=== PATIENT | female | born 1955 | race Caucasian/White ===

== ENCOUNTER 2022-05-29 23:48 | Inpatient (IN) | payer MEDICARE, OTHER ==
[~2022-05-29] VITALS: Ht 152.4 cm; Wt 66.2 kg
--- NOTE | 2022-05-29 23:57 | NUR ---
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 A/O X 4, RESPIRATORY EVEN AND UNLABORED, NO SOB NOTED. CONNENCTED TO MONITOR. AWAITING TO BE SEEN BY .
--- NOTE | 2022-05-30 00:25 | NUR ---
LINE STARTED AT LAC #20, BLOOD COLLECTED AND SENT TO LAB
[2022-05-30 00:41] LABS: BASOPHILS % (AUTO) 0.7 % (0.0-2.0); EOSINOPHILS % (AUTO) 1.2 % (0.0-6.0); HEMATOCRIT 37 % (33-45); HEMOGLOBIN 11.9 g/dL (11.5-14.8); LYMPHOCYTES # (AUTO) 1.6 K/uL (0.8-4.8); LYMPHOCYTES % (AUTO) 24.4 % (20.0-44.0); MEAN CORPUSCULAR HGB CONC 33 g/dl (31.0-36.0); MEAN CORPUSCULAR VOLUME 78 fL (82-100); MONOCYTES # (AUTO) 0.6 K/uL (0.1-1.30); MONOCYTES % (AUTO) 9.3 % (2.0-12.0); NEUTROPHILS # (AUTO) 4.3 K/uL (1.8-8.9); NEUTROPHILS % (AUTO) 64.4 % (43.0-81.0); PLATELET COUNT (AUTO) 201 K/uL (150-450); RED BLOOD CELL COUNT(AUTO) 4.71 MIL/uL (4.0-5.2); WHITE BLOOD COUNT (AUTO) 6.6 K/uL (4.3-11.0)
[2022-05-30 00:48] LABS: CALCIUM, SERUM 9.1 mg/dL (8.5-10.1); CARBON DIOXIDE 30 mmol/L (21-32); CHLORIDE 99 mmol/L (98-107); CREATININE 1.1 mg/dL (0.6-1.3); GLUCOSE 161 mg/dL (74-106); POTASSIUM 3.2 mmol/L (3.5-5.1); SODIUM SERUM 135 mmol/L (136-145); UREA NITROGEN, BLOOD 12 mg/dL (7-18)
[2022-05-30] MEDS ORDERED: IV NS 0.9% 1,000 ML IV ONE (02:00)
--- NOTE | 2022-05-30 02:17 | NUR ---
BED 108
[2022-05-30] MEDS ORDERED: DEXTROSE 50%-WATER 50 ML DISP.SYRIN IV PRN (02:30)
[2022-05-30] MEDS ORDERED: ONDANSETRON HCL/PF 4 MG/2 ML VIAL IVP PRN (02:30)
[2022-05-30] MEDS ORDERED: ACETAMINOPHEN 325 MG TABLET PO PRN (02:30)
[2022-05-30] MEDS ORDERED: INSULIN REGULAR, HUMAN 100 UNIT/ML 3 ML VIAL SQ PRN (02:30)
--- NOTE | 2022-05-30 02:30 | NUR ---
MRSA SWAB COLLECTED AND SENT TO LAB. PATIENT'S BELONGINGS LIST DONE.
--- NOTE | 2022-05-30 02:54 | NUR ---
REPORT GIVEN TO [facility], JULIA
--- NOTE | 2022-05-30 03:14 | NUR ---
PT. TRANSPORTED TO [facility] VIA ACLS PROTOCOL
[2022-05-30 03:20] VITALS: BP 131/55
--- NOTE | 2022-05-30 03:20 | NUR ---
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
--- NOTE | 2022-05-30 07:00 | NUR ---
END OF THE SHIFT REPORT, PATIENT IN BED, ASLEEP AT THIS TIME, AT ROOM AIR, O2> 95%, NO SOB/ACUTE DISTRESS NOTED DURING THE REST OF THE SHIFT, DENIES CHEST PAIN, ALL SAFETY MEASURES IN PLACE, BED LOCKED AND IN LOWEST POSITION, BED ALARM ON, WILL ENDORSE CONTINUITY OF CARE TO ONCOMING NURSE.
[2022-05-30 07:22] LABS: CHOLESTEROL 170 mg/dL (<200); HDL CHOLESTEROL 44 mg/dL (40-60); LDL 108 mg/dL (0-99); TRIGLYCERIDES 100 mg/dL (30-150)
--- NOTE | 2022-05-30 07:39 | NUR ---
RN NOTE PT RECEIVED RESTING IN BED, AWAKE AND RESPONSIVE. NO COMPLAINTS OF CHEST PAIN. CONTINUES IN ROOM AIR, COVID PRECAUTIONS. PT WITH IV ACCESS ON LAC G20, PATENT AND WITH NO FLUIDS RUNNING. SAFETY MEASURES FOLLOWED. WILL CONTINUE TO MONITOR.
[2022-05-30 08:00] VITALS: BP 160/80
[2022-05-30] MEDS: BLOOD SUGAR DIAGNOSTIC 1 EACH STRIP VI SCH ×4 (08:07→21:20)
[2022-05-30] MEDS: APIXABAN 5 MG TABLET PO SCH ×2 (08:08→17:07)
[2022-05-30] MEDS ORDERED: METO25TA4 PO (09:23)
[2022-05-30] MEDS ORDERED: NETA2.5D3 EACHEYE (09:23)
[2022-05-30] MEDS ORDERED: TIMO5DRO18 EACHEYE (09:23)
[2022-05-30] MEDS ORDERED: LOSA1TAB42 PO (09:23)
[2022-05-30] MEDS ORDERED: GABA-536 PO (09:23)
[2022-05-30] MEDS ORDERED: LEVO150T8 PO (09:23)
[2022-05-30] MEDS ORDERED: TIZA4TAB5 PO (09:23)
[2022-05-30] MEDS ORDERED: METF-881 PO (09:23)
[2022-05-30] MEDS ORDERED: APIX5TAB PO (09:23)
[2022-05-30] MEDS ORDERED: OMEP20CA15 PO (09:23)
[2022-05-30] MEDS: POTASSIUM CHLORIDE 20 MEQ TAB.PRT.SR PO SCH ×2 (10:36→11:50)
[2022-05-30 12:00] VITALS: BP 164/79
[2022-05-30] MEDS ORDERED: MORPHINE SULFATE INJ 2 MG/ML DISP.SYRIN IV PRN (12:30)
[2022-05-30] MEDS ORDERED: hydrALAZINE HCL IV 20 MG VIAL IV PRN (12:30)
[2022-05-30] MEDS: TIMOLOL 0.5% SOLN OPHTH 5 ML BOTTLE EACHEYE SCH (17:06)
--- NOTE | 2022-05-30 17:53 | NUR ---
RN NOTE PT RESTING IN BED, AWAKE AND RESPONSIVE. NO COMPLAINTS OF CHEST PAIN. CONTINUES IN ROOM AIR, COVID PRECAUTIONS. PT WITH IV ACCESS ON LAC G20 , PATENT AND WITH NO FLUIDS RUNNING. SAFETY MEASURES FOLLOWED.ALL DUE MEDICATIONS TAKEN, AM/PM CARE RENDERED. WILL CONTINUE TO MONITOR.
--- NOTE | 2022-05-30 19:19 | NUR ---
ATTENDING AMBULATORY CARE OPENING NOTE PT RESTING IN BED, AWAKE AND RESPONSIVE A/O X4 NO COMPLAINTS OF CHEST PAIN AT THIS TIME. ON ROOM AIR TOLERATING WELL. ON EXTERNAL TELE MONITOR READING SR.COVID PRECAUTIONS MAINTAINED. PT WITH IV ACCESS ON LAC G20 PATENT S/L. SAFETY MEASURES FOLLOWED. BILATERAL SIDE RAILS UP FOR SAFETY X2 CALL LIGHT WITHIN REACH. TABLE WITHIN REACH. WILL CONTINUE TO MONITOR PT.
[2022-05-30 20:00] VITALS: BP 158/57
[2022-05-30] MEDS: TIZANIDINE HCL 4 MG TABLET PO SCH (21:20)
[2022-05-30] MEDS: GABAPENTIN 400 MG CAPSULE PO SCH (21:20)
[2022-05-30] MEDS: *INSULIN REGULAR(HUMULIN R)HUM 100 UNIT/ML VIAL SQ PRN (21:31)
--- NOTE | 2022-05-30 21:32 | NUR ---
television actor notes pt refused insulin x3 risk and benefits explained x3.
[2022-05-31] VITALS: BP 106/52
[2022-05-31 04:24] VITALS: BP 128/49
--- NOTE | 2022-05-31 06:43 | NUR ---
COMMUNITY HEALTH PROMOTER CLOSING NOTE PT RESTING IN BED, AWAKE AND RESPONSIVE A/O X4 NO COMPLAINTS OF CHEST PAIN AT THIS TIME. ON ROOM AIR TOLERATING WELL. ON EXTERNAL TELE MONITOR READING SR.COVID PRECAUTIONS MAINTAINED. PT WITH IV ACCESS ON LAC G20 PATENT S/L. SAFETY MEASURES FOLLOWED. BILATERAL SIDE RAILS UP FOR SAFETY X2 CALL LIGHT WITHIN REACH. TABLE WITHIN REACH. ALL DUE MEDS GIVEN AND TOLERATED WELL.WILL ENDORSE ARE TO DAY SHIFT NURSE.
[2022-05-31 07:08] LABS: BASOPHILS % (AUTO) 0.5 % (0.0-2.0); EOSINOPHILS % (AUTO) 3.1 % (0.0-6.0); HEMATOCRIT 35 % (33-45); HEMOGLOBIN 11.5 g/dL (11.5-14.8); LYMPHOCYTES # (AUTO) 2.4 K/uL (0.8-4.8); LYMPHOCYTES % (AUTO) 32.7 % (20.0-44.0); MEAN CORPUSCULAR HGB CONC 33 g/dl (31.0-36.0); MEAN CORPUSCULAR VOLUME 78 fL (82-100); MONOCYTES # (AUTO) 0.7 K/uL (0.1-1.30); MONOCYTES % (AUTO) 9.5 % (2.0-12.0); NEUTROPHILS # (AUTO) 3.9 K/uL (1.8-8.9); NEUTROPHILS % (AUTO) 54.2 % (43.0-81.0); PLATELET COUNT (AUTO) 188 K/uL (150-450); RED BLOOD CELL COUNT(AUTO) 4.55 MIL/uL (4.0-5.2); WHITE BLOOD COUNT (AUTO) 7.3 K/uL (4.3-11.0)
[2022-05-31] MEDS: LEVOTHYROXINE SODIUM 75 MCG TABLET PO SCH (07:32)
[2022-05-31] MEDS: PANTOPRAZOLE 40 MG TABLET.DR PO SCH (07:32)
[2022-05-31] MEDS: BLOOD SUGAR DIAGNOSTIC 1 EACH STRIP VI SCH ×4 (07:32→21:55)
[2022-05-31 07:53] LABS: ALBUMIN 3.1 g/dL (3.4-5.0); BILIRUBIN,TOTAL 0.2 mg/dL (0.2-1.0); CALCIUM, SERUM 8.6 mg/dL (8.5-10.1); CREATININE 0.9 mg/dL (0.6-1.3); MAGNESIUM 1.9 mg/dL (1.8-2.4); PHOSPHORUS 3.7 mg/dL (2.5-4.9); POTASSIUM 4.1 mmol/L (3.5-5.1); TOTAL PROTEIN, SERUM 7.7 g/dL (6.4-8.2)
[2022-05-31] MEDS: LOSARTAN POTASSIUM 50 MG TABLET PO SCH (08:37)
[2022-05-31] MEDS: HYDROCHLOROTHIAZIDE 25 MG TABLET PO SCH (08:38)
[2022-05-31] MEDS: METOPROLOL SUCCINATE 25 MG TAB.SR.24H PO SCH (08:38)
[2022-05-31] MEDS: APIXABAN 5 MG TABLET PO SCH ×2 (08:40→17:34)
[2022-05-31] MEDS: TIMOLOL 0.5% SOLN OPHTH 5 ML BOTTLE EACHEYE SCH ×2 (08:42→17:33)
[2022-05-31] MEDS: METFORMIN XR 500 MG TAB.SR.24H PO SCH (08:42)
[2022-05-31] MEDS ORDERED: Medication Not On Formulary EA (Losartan/Hydrochlorothiazide (Losartan-Hctz 100-12.5 Mg PO SCH (09:00)
[2022-05-31] MEDS ORDERED: GUAIFENESIN/CODEINE 10 ML UDC PO PRN (11:30)
[2022-05-31 12:00] VITALS: BP 151/75
[2022-05-31 20:00] VITALS: BP 154/72
--- NOTE | 2022-05-31 20:16 | NUR ---
RECEIVING WORKER OPENING NOTE PT RECEIVED IN BED, AWAKE, A&O X4, CALM, COOPERATIVE. PT ON RA WITH CURRENT O2SAT OF 96%; NO S/S OF RESP DISTRESS, NON-LABORED AND EQUAL BREATHING. PT NOTED TO HAVE PRODUCTIVE COUGH AND PT REPORTS OF SOME CHEST CONGESTION; PT ABLE TO SPIT OUT PHLEGM. PT ATTACHED TO EXTERNAL MONITOR, CURRENTLY SB WITH HR OF 58. PT ABLE TO WALK WITH CANE. IV ACCESS ON LAC 20G, CURRENTLY HAS NO FLUIDS/MEDS RUNNING THROUGH IT. BED IN LOWEST POSITION, CALL LIGHT WITHIN REACH, SIDE RAILS UP X2. WILL CONTINUE TO MONITOR THROUGHOUT THE NIGHT. Addendum: 05/31/22 at 2222 by PRINCESS GUTIERREZ RN PT ENDORSES THAT SHE HAS RECTAL BLEEDING D/T HEMORRHOIDS. SHE REPORTS THAT SHE HAD SURGERY DONE ON THE HEMORRHOID AND THAT 2 INCHES WAS CUT OFF IN AUGUST OF LAST MONTH. SHE ALSO REPORTS THAT AT HOME SHE TAKES STOOL SOFTENERS. WILL MONITOR FOR ANY SIGNS OF RECTAL BLEEDING.
--- NOTE | 2022-05-31 20:36 | NUR ---
RN NOTE PT REPORTS OF HAVING A COUGH AND SLIGHT CHEST CONGESTION AND ASKS FOR COUGH MEDICINE. PT ADMINISTERED 10 ML OF GUAIFENESIN. WILL MONITOR FOR EFFECTIVENESS.
[2022-05-31] MEDS: GABAPENTIN 400 MG CAPSULE PO SCH (21:36)
[2022-05-31] MEDS: TIZANIDINE HCL 4 MG TABLET PO SCH (21:36)
[2022-05-31] MEDS: *INSULIN REGULAR(HUMULIN R)HUM 100 UNIT/ML VIAL SQ PRN (21:50)
[2022-05-31] MEDS ORDERED: LATANOPROST EYE DROP 0.005% 2.5 ML BOTTLE EACHEYE SCH (22:00)
[2022-06-01 04:00] VITALS: BP 138/71
--- NOTE | 2022-06-01 06:18 | NUR ---
BLOCKLAYER CLOSING NOTE PT RESTING IN BED, ASLEEP BUT EASILY AROUSABLE, A&O X4, CALM, COOPERATIVE, SLEPT WELL THROUGHOUT THE NIGHT. PT REMAINS ON RA WITH O2SAT RANGING FROM 96%; NO S/S OF RESP DISTRESS, NON-LABORED AND EQUAL BREATHING. CONTINUES TO HAVE PRODUCTIVE COUGH AND CONGESTION, BUT REPORTS THAT SHE FELT SOME RELIEF AFTER ADMINISTERING THE GUAIFENESIN. ATTACHED TO EXTERNAL MONITOR, CURRENTLY SR-SB WITH HR RANGING FROM 54-62. IV ACCESS ON LAC 20G, NO FLUIDS/MEDS RUNNING THROUGH IT. BED IN LOWEST POSITION, CALL LIGHT WITHIN REACH, SIDE RAILS UP X2. WILL ENDORSE TO DAYSHIFT NURSE TO CONTINUE CARE.
--- NOTE | 2022-06-01 07:20 | NUR ---
RN OPEN NOTE EXAMINATION SUPERVISOR OPEN NOTE PATIENT IS RESTING IN BED, AWAKE AND RESPONSIVE A/O X4 N. ON ROOM AIR TOLERATING WELL.BREATHING NON LABORED NO SIGHS OF DISTRESS ON EXTERNAL TELE MONITOR READING SR.COVID PRECAUTIONS MAINTAINED. PATIENT HAS IV ACCESS ON LAC G20 PATENT S/L. SAFETY MEASURES FOLLOWED. BILATERAL SIDE RAILS UP FOR SAFETY X2 CALL LIGHT WITHIN REACH. WILL FALLOW UP WITH POC
[2022-06-01] MEDS: BLOOD SUGAR DIAGNOSTIC 1 EACH STRIP VI SCH ×2 (07:39→11:21)
[2022-06-01] MEDS: LEVOTHYROXINE SODIUM 75 MCG TABLET PO SCH (07:42)
[2022-06-01] MEDS: PANTOPRAZOLE 40 MG TABLET.DR PO SCH (07:42)
[2022-06-01] MEDS: TIMOLOL 0.5% SOLN OPHTH 5 ML BOTTLE EACHEYE SCH (08:29)
[2022-06-01] MEDS: LOSARTAN POTASSIUM 50 MG TABLET PO SCH (08:29)
[2022-06-01] MEDS: APIXABAN 5 MG TABLET PO SCH (08:30)
[2022-06-01] MEDS: METFORMIN XR 500 MG TAB.SR.24H PO SCH (08:31)
[2022-06-01] MEDS: METOPROLOL SUCCINATE 25 MG TAB.SR.24H PO SCH (08:31)
[2022-06-01] MEDS: HYDROCHLOROTHIAZIDE 25 MG TABLET PO SCH (08:32)
[2022-06-01] MEDS ORDERED: ASPI-1420 PO (10:55)
[2022-06-01 12:00] VITALS: BP 135/75
--- NOTE | 2022-06-01 14:07 | NUR ---
Patient is at stable health condition , order received to discharge patient home . Written and verbal instructions were provided to the patient and verbal instructions provided to the the patient's daughter over the phone Patient and her daughter verbalized understanding . IV access line was removed . Patient is discharged from [facility]
== END 2022-06-01 13:28 | disposition home or self-care (01) | DRG 311 ==
LOC: ER 23:51 → TELE1 05-30 02:17
PROVIDERS: ADMIT Internal Medicine; ATTEND Internal Medicine
DX: I20.0 Unstable angina (principal); U07.1 COVID-19; R07.81 Pleurodynia; E11.9 Type 2 diabetes mellitus without complications; I10 Essential (primary) hypertension; I48.91 Unspecified atrial fibrillation; E03.9 Hypothyroidism, unspecified; E87.6 Hypokalemia; Z79.01 Long term (current) use of anticoagulants; Z79.84 Long term (current) use of oral hypoglycemic drugs
CPT/HCPCS: 36415; 71045-TC; 80048-TC; 80053-TC; 80061-TC; 82962-TC; 83605-TC; 83735-TC; 84100-TC; 84484-TC; 85025-TC; 85378-TC; 86140-TC; 87081-TC; 93307-TC; C9803; G0378; J1815; J7030

== ENCOUNTER 2022-10-11 10:39 | Inpatient (IN) | payer MEDICARE, OTHER ==
[~2022-10-11] VITALS: Ht 149.9 cm; Wt 71.2 kg
[~2022-10-11 10:39] MED LIST: APIX5TAB PO; ASPI-1420 PO; GABA-536 PO; LEVO150T8 PO; LOSA1TAB42 PO; METF-881 PO; METO25TA4 PO; NETA2.5D3 EACHEYE; OMEP20CA15 PO; TIMO5DRO18 EACHEYE; TIZA4TAB5 PO
--- NOTE | 2022-10-11 11:00 | NUR ---
c/o chest pain since 944
--- NOTE | 2022-10-11 11:59 | NUR ---
lab at bedside
--- NOTE | 2022-10-11 12:06 | NUR ---
MOVE SHEET SUBMITTED
[2022-10-11 12:11] LABS: BASOPHILS % (AUTO) 0.5 % (0.0-2.0); EOSINOPHILS % (AUTO) 2.2 % (0.0-6.0); HEMATOCRIT 38 % (33-45); HEMOGLOBIN 12.1 g/dL (11.5-14.8); LYMPHOCYTES # (AUTO) 2.4 K/uL (0.8-4.8); MEAN CORPUSCULAR HGB CONC 32 g/dl (31.0-36.0); MEAN CORPUSCULAR VOLUME 77 fL (82-100); MONOCYTES # (AUTO) 0.6 K/uL (0.1-1.30); MONOCYTES % (AUTO) 8.1 % (2.0-12.0); NEUTROPHILS # (AUTO) 4.5 K/uL (1.8-8.9); NEUTROPHILS % (AUTO) 58.2 % (43.0-81.0); PLATELET COUNT (AUTO) 262 K/uL (150-450); RED BLOOD CELL COUNT(AUTO) 4.87 MIL/uL (4.0-5.2); WHITE BLOOD COUNT (AUTO) 7.7 K/uL (4.3-11.0)
[2022-10-11 12:35] LABS: CALCIUM, SERUM 8.5 mg/dL (8.5-10.1); CARBON DIOXIDE 37 mmol/L (21-32); CHLORIDE 103 mmol/L (98-107); CREATININE 0.9 mg/dL (0.6-1.3); GLUCOSE 141 mg/dL (74-106); POTASSIUM 3.9 mmol/L (3.5-5.1); SODIUM SERUM 139 mmol/L (136-145); UREA NITROGEN, BLOOD 13 mg/dL (7-18)
--- NOTE | 2022-10-11 13:01 | NUR ---
[facility] PAGED
[2022-10-11] MEDS ORDERED: ACETAMINOPHEN 325 MG TABLET PO PRN (17:30)
[2022-10-11] MEDS ORDERED: ONDANSETRON HCL/PF 4 MG/2 ML VIAL IVP PRN (17:30)
[2022-10-11] MEDS ORDERED: MAGNESIUM HYDROXIDE 30 ML UDC PO PRN (17:30)
[2022-10-11] MEDS ORDERED: Z GUARD REMEDY 4 OZ OINT TP PRN (17:30)
[2022-10-11] MEDS: BLOOD SUGAR DIAGNOSTIC 1 EACH STRIP IN SCH ×2 (17:30→22:18)
[2022-10-11] MEDS ORDERED: DEXTROSE 50%-WATER 50 ML DISP.SYRIN IV PRN (17:30)
[2022-10-11] MEDS ORDERED: IOHEXOL-350 100 ML VIAL IV ONE (17:34)
[2022-10-11] MEDS ORDERED: IV NS 0.9% 250 ML IV ONE (17:35)
--- NOTE | 2022-10-11 18:05 | NUR ---
ICU/RN CTA DONE.NO METOPROLOL IV WAS GIVEN HR-58-60 BPM. NITRO SPRAY WAS GIVEN SL.PT TOLERATED PROCEDURE WELL .V/S STABLE.TRANSFER BACK TO ER.
--- NOTE | 2022-10-11 19:26 | NUR ---
GOT BED 317-2
--- NOTE | 2022-10-11 19:30 | NUR ---
RECEIVED REPORT FROM RN GEETA. PATIENT IS FOR ADMISSION DT CHEST PAIN. WITH IV CANNULA G22 ON RIGHT FA. WITH MIDLINE ON LEFT UA G18. PATIENT -CP,-SOB,-CP DISTRESS. ATTACHED TO MONITOR. VITALS CHECKED.
--- NOTE | 2022-10-11 20:19 | NUR ---
REPORT GIVEN TO AGUILA LIZ
[2022-10-11 21:10] VITALS: BP 155/77
--- NOTE | 2022-10-11 21:30 | NUR ---
TRANSFERRED TO ROOM
[2022-10-11] MEDS ORDERED: GABAPENTIN 100 MG CAPSULE PO SCH (22:00)
[2022-10-11] MEDS ORDERED: Medication Not On Formulary EA (Netarsudil Mesylat/Latanoprost (Rocklatan 0.02%-0.005% E EACHEYE SCH (22:00)
[2022-10-11] MEDS ORDERED: TIZANIDINE HCL 4 MG TABLET PO SCH (22:00)
[2022-10-11] MEDS: APIXABAN 5 MG TABLET PO SCH (22:18)
[2022-10-11] MEDS: INSULIN REGULAR, HUMAN 100 UNIT/ML 3 ML VIAL SQ PRN (22:20)
--- NOTE | 2022-10-11 22:25 | NUR ---
noc rn note- non-admin patient refused insulin. bs 196. per patient she knows her blood sugar well and it usually drops drastically in the am without insulin and per patient she had a late big dinner hence its high.
[2022-10-12] VITALS: BP 117/70
--- NOTE | 2022-10-12 03:47 | NUR ---
ADMISSION NOTE PATIENT BROUGHT UP IN UNIT AT AROUND 0, VIA GURNEY ACCOMPANIED BY 2 ER PERSONNEL. PATIENT IS AMBULATORY WITH CANE. PATIENT IS A/OX4 . NO S/S OF APPARENT DISTRESS ON ROOM AIR. DENIES ANY CHEST PAIN WHEN ARRIVED IN UNIT. PATIENT WISHES TO BE FULL CODE. PER PATIENT SHE IS UP-TO-DATE WITH HER IMMUNIZATIONS INCLUDING COVID. READING SB IN TELE MONITOR 55 BPM. DENIES DRINKING NOR SMOKING. NEW ID BAND ON PATIENT. BELONGINGS CHECKED AND SIGNED FOR. PATIENT HOME MEDICATIONS TAKEN AND WILL BE GIVEN TO PHARMACY. IV ACCESS ON L.UA #18G ON SALINE LOCK. PATIENT ORIENTED IN UNIT AND THE USE OF CALL LIGHT. WILL FOLLOW THROUGH DOCTOR'S ORDERS AND CONTINUE WITH THE PATIENT'S PLAN OF CARE.
[2022-10-12 04:00] VITALS: BP 110/58
[2022-10-12] MEDS: INSULIN REGULAR, HUMAN 100 UNIT/ML 3 ML VIAL SQ PRN ×2 (06:35→12:37)
[2022-10-12] MEDS: BLOOD SUGAR DIAGNOSTIC 1 EACH STRIP IN SCH ×2 (06:35→11:26)
--- NOTE | 2022-10-12 07:00 | NUR ---
HEREDITARY CANCER PROGRAM COORDINATOR OPENING NOTE PATIENT LAYING IN BED, A/O X 3, ABLE TO MAKE NEEDS KNOWN, TOLERATING WELL ON ROOM AIR WITH NO S/S RESPIRATORY DISTRESS. DOMENIC MIDLINE # 18 G CLEAN, INTACT, AND FLUSHING WELL. TELE MONITOR IN PLACE READING SINUS ORION 56. SAFETY MEASURES IN PLACE: BED IN LOWEST LOCKED POSITION, SIDE RAILS UP X 2, CALL LIGHT WITHIN REACH. WILL CONTINUE TO MONITOR.
[2022-10-12 07:17] LABS: BASOPHILS % (AUTO) 0.5 % (0.0-2.0); EOSINOPHILS % (AUTO) 2.1 % (0.0-6.0); HEMATOCRIT 35 % (33-45); HEMOGLOBIN 11.3 g/dL (11.5-14.8); LYMPHOCYTES # (AUTO) 2.6 K/uL (0.8-4.8); LYMPHOCYTES % (AUTO) 34.6 % (20.0-44.0); MEAN CORPUSCULAR HGB CONC 32 g/dl (31.0-36.0); MEAN CORPUSCULAR VOLUME 76 fL (82-100); MONOCYTES # (AUTO) 0.5 K/uL (0.1-1.30); MONOCYTES % (AUTO) 7.3 % (2.0-12.0); NEUTROPHILS # (AUTO) 4.2 K/uL (1.8-8.9); NEUTROPHILS % (AUTO) 55.5 % (43.0-81.0); PLATELET COUNT (AUTO) 251 K/uL (150-450); WHITE BLOOD COUNT (AUTO) 7.5 K/uL (4.3-11.0)
--- NOTE | 2022-10-12 07:22 | NUR ---
noc rn closing needs attended. report given to john March for continuity of care.
[2022-10-12] MEDS ORDERED: LEVOTHYROXINE SODIUM 50 MCG TABLET PO SCH (07:30)
[2022-10-12] MEDS ORDERED: PANTOPRAZOLE 40 MG TABLET.DR PO SCH (07:30)
[2022-10-12 07:53] LABS: CALCIUM, SERUM 8.5 mg/dL (8.5-10.1); CREATININE 0.7 mg/dL (0.6-1.3); PHOSPHORUS 3.8 mg/dL (2.5-4.9); POTASSIUM 4.1 mmol/L (3.5-5.1)
[2022-10-12 08:33] VITALS: BP 132/91
[2022-10-12] MEDS: APIXABAN 5 MG TABLET PO SCH (08:37)
[2022-10-12] MEDS ORDERED: ASPIRIN EC 81 MG TABLET.DR PO SCH (09:00)
[2022-10-12] MEDS ORDERED: METOPROLOL SUCCINATE 25 MG TAB.SR.24H PO SCH (09:00)
[2022-10-12] MEDS ORDERED: TIMOLOL 0.5% SOLN OPHTH 5 ML BOTTLE EACHEYE SCH (09:00)
[2022-10-12] MEDS ORDERED: HYDROCHLOROTHIAZIDE 25 MG TABLET PO SCH (09:00)
[2022-10-12] MEDS ORDERED: LOSARTAN POTASSIUM 50 MG TABLET PO SCH (09:00)
[2022-10-12] MEDS ORDERED: Medication Not On Formulary EA (Losartan/Hydrochlorothiazide (Losartan-Hctz 100-12.5 Mg PO SCH (09:00)
--- NOTE | 2022-10-12 15:37 | NUR ---
MS SHOE DESIGNER NOTES PATIENT MADE AWARE OF MD DISCHARGE ORDER AND INSTRUCTIONS. PATIENT VERBALIZED UNDERSTANDING OF DISCHARGE INSTRUCTIONS AND SIGNED DISCHARGE INSTRUCTIONS SHEET. PATIENT VERBALIZED POSSESSION OF ALL BELONGING AND SIGNED BELONGINGS LIST. IV LINES AND ID BAND REMOVED. DISCHARGE MEDICATIONS PROVIDED TO PATIENT. PATIENT TRANSPORTED OFF OF UNIT VIA WHEELCHAIR ACCOMPANIED BY BUNDLES HANGER. ALL DISCHARGE PAPERWORK PROVIDED TO PATIENT. PATIENT STABLE AT TIME OF DISCHARGE.
== END 2022-10-12 16:23 | disposition home or self-care (01) | DRG 206 ==
LOC: ER 10:43 → TELE 19:50 → MED 10-12 09:47
PROVIDERS: ADMIT Nurse Practitioner Family; ATTEND Nurse Practitioner Acute Care
DX: M94.0 Chondrocostal junction syndrome [Tietze] (principal); I48.91 Unspecified atrial fibrillation; I10 Essential (primary) hypertension; E11.9 Type 2 diabetes mellitus without complications; Z79.01 Long term (current) use of anticoagulants; Z79.82 Long term (current) use of aspirin; Z88.0 Allergy status to penicillin; Z79.84 Long term (current) use of oral hypoglycemic drugs; R42 Dizziness and giddiness; Z91.018 Allergy to other foods; D64.9 Anemia, unspecified
CPT/HCPCS: 36410; 36415; 71045-TC; 75574; 80048-TC; 80061-TC; 82962-TC; 83735-TC; 84100-TC; 84484-TC; 85025-TC; 87081-TC; C9803; G0378; J1815; J7050; Q9967